=== PATIENT | female | born 1985 | race African-American/Black ===

== ENCOUNTER 2018-03-24 07:52 | Emergency (ER) | payer OTHER ==
[~2018-03-24] VITALS: Ht 165.1 cm; Wt 102.1 kg
--- NOTE | 2018-03-24 08:18 | ED EAR COMPLAINT ---
History of Present Illness General Chief Complaint: Ear Complaints Stated Complaint: BUG IN EAR Source: patient Exam Limitations: no limitations Vital Signs & Intake/Output Vital Signs & Intake/Output Vital Signs Date Time Temp Pulse Resp B/P B/P Pulse O2 O2 Flow FiO2 Mean Ox Delivery Rate 03/24 0801 98.2 81 20 138/75 99 Room Air Allergies Coded Allergies: No Known Allergies (03/24/18) Triage Note: C/O BUG IN LEFT EAR, MOVING AROUND X FEW MINUTES. Triage Nurses Notes Reviewed? yes Onset: Abrupt Duration: hour(s):, better, constant, continues in ED Severity: mild : No Patient currently breastfeeds: No HPI: Patient presents for evaluation of an insect in her left ear. Patient states she thinks it may have gotten into her ear at about 7:20 this morning. She stated she felt movement like something was "trying to come out". Past History Travel History Traveled to [place] past 21 day No Medical History Any Pertinent Medical History? see below for history Surgical History Surgical History: non-contributory Psychosocial History What is your primary language Portuguese Tobacco Use: Never used ETOH Use: occasional use Illicit Drug Use: denies illicit drug use Family History Hx Contributory? No Review of Systems Review of Systems Constitutional: Reports: no symptoms. EENTM: Reports: see HPI. Respiratory: Reports: no symptoms. Cardiovascular: Reports: no symptoms. GI: Reports: no symptoms. Genitourinary: Reports: no symptoms. Musculoskeletal: Reports: no symptoms. Skin: Reports: no symptoms. Neurological/Psychological: Reports: no symptoms. Hematologic/Endocrine: Reports: no symptoms. Immunologic/Allergic: Reports: no symptoms. All Other Systems: Reviewed and Negative Physical Exam Physical Exam Ears: Left: canal normal, Tympanic normal. Progress Differential Diagnoses I considered the following diagnoses in my evaluation of the patient: Foreign body, otitis media, otitis externa, serous otitis Plan of Care: No specific care required. Initial ED EKG: none Departure Departure Disposition: HOME OR SELF CARE Condition: Stable Clinical Impression Primary Impression: Otalgia of left ear Referrals: Iliana Brown MD (PCP/Family) Additional Instructions: Follow-up with an manager search if you have any persistent left ear symptoms. Return if any concerns or sudden worsening. Departure Forms: Customer Survey General Discharge Information
== END 2018-03-24 08:25 ==
LOC: ERH 07:52
DX: H92.02 Otalgia, left ear (principal)